=== PATIENT | female | born 1995 | race Caucasian/White ===

== ENCOUNTER 2022-04-01 16:06 | Emergency (ER) | payer SELFPAY ==
[~2022-04-01] VITALS: Ht 165.1 cm; Wt 86.2 kg
[2022-04-01 16:07] VITALS: BP 117/41
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
--- NOTE | 2022-04-01 16:28 | NUR ---
DR JENKINS AT BEDSIDE EVALUATING PT
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
--- NOTE | 2022-04-01 16:49 | NUR ---
SPOKE WITH FROM SANJANA FROM [facility]. PROVIDED ALL INFORMATION PROVIDED BY PATIENT. INFORMED HIM THAT THE AMBULANCE PICKED HER UP [address] PROVIDED HIM [facility] CALL BACK NUMBER OF ER. STATED THAT OFFICERS WILL BE DISPATCHED
--- NOTE | 2022-04-01 17:40 | NUR ---
[place] [employer]- OFFICER CRISTOBAL AT BEDSIDE SPEAKING WITH PATIENT AT THIS TIME.
--- NOTE | 2022-04-01 17:44 | NUR ---
PT REFUSED TO SPEAK WITH PD OFFICERS, PD STATED THERE WAS NOTHING THEY CAN DO.
[2022-04-01] MEDS ORDERED: OLANZapine 5 MG ODT SL ONE (17:50)
[2022-04-01 18:16] VITALS: BP 127/87
--- NOTE | 2022-04-01 18:17 | NUR ---
lab at bedside
--- NOTE | 2022-04-01 18:25 | NUR ---
unable to give urine sample at this time.
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
[2022-04-01] MEDS ORDERED: KETOROLAC 15 MG/ML VIAL IVP ONE (19:20)
--- NOTE | 2022-04-01 19:20 | NUR ---
Pt report given to GAMA Cano. Transfer of care at this time.
[2022-04-01 20:15] LABS: APPEARANCE,URINE SL CLOUDY (CLEAR); BILIRUBIN,URINE NEGATIVE (NEGATIVE); BLOOD, URINE 3+ (NEGATIVE); COLOR,URINE DARK YELLOW (YELLOW); LEUKOCYTE ESTERASE ,URINE TRACE (NEGATIVE); NITRITE, URINE NEGATIVE (NEGATIVE); UGLUCOSE NEGATIVE (NEGATIVE)
[2022-04-01 20:36] LABS: RBC,URINE TOO NUMEROUS TO COUN /HPF (0-5); YEAST,URINE None Seen /HPF (None Seen)
--- NOTE | 2022-04-01 21:03 | NUR ---
PT STATES "CAN I BE MOVED TO ANOTHER ROOM. I CANT JUST STAY HERE. EXPLAINED TO PT THAT THIS ROOM WAS THE ONLY AVAILABLE ROOM AT THIS TIME. PT RETURNED TO ROOM.
[2022-04-01] MEDS ORDERED: IBUP-2213 PO (21:10)
[2022-04-01] MEDS ORDERED: CEPH-588 PO (21:10)
--- NOTE | 2022-04-01 21:10 | NUR ---
Pt informed that Dr. Burgess will assess patient. Patient stated "Ok, I will wait for the doctor." Dr. Burgess verbally informed that patient is waiting for assessment. Dr. Burgess verbalized understanding, no further questions or orders.
--- NOTE | 2022-04-01 21:14 | NUR ---
PT SEEN LEAVING FACILITY THROUGH AMBULANCE ENTRANCE, PT STATED "I'M JUST GONNA LEAVE." DR. MITCHELL MADE AWARE.
--- NOTE | 2022-04-01 21:14 | NUR ---
DR. MITCHELL CLEARED PT. PT LEFT FACILITY WITHOUT INSTRUCTIONS
--- NOTE | 2022-04-01 21:43 | NUR ---
NOTIFIED BY PRIMARY RN THAT PT HAD IV LINE IN PLACE. PT UNABLE TO BE FOUND IN LOBBY OR OUTSIDE. CALLED PHONE NUMBER LISTED ON FILE WITH NO ANSWER. CALLED [place] [employer] TO SEE IF PT CAN BE LOCATED AND PER DISPATCH IF THERE IS NO ADDRESS LISTED FOR PATIENT, PD WOULD NOT BE ABLE TO SEARCH FOR PT.
--- NOTE | 2022-04-01 22:07 | NUR ---
RETURN CALL FROM CELINE, PT MOTHER WHO STATED THAT PT LIVES AT A [facility] IN [place] AND PROVIDED ADDRESS OF [address] [place] [id number] AND PHONE NUMBER [phone]. WILL HAVE PRIMARY RN RECONTACT PD.
--- NOTE | 2022-04-01 22:23 | NUR ---
CONTACTED [facility] [place] MOLD STAMPER AND REPAIRER CECIL FABIAN, AT PHONE NUMBER PHONE NUMBER [phone]. MOLD STAMPER AND REPAIRER CECIL FABIAN STATED, "WHEN SHE GETS HOME, I WILL TAKE OUT THE IV. I KNOW HOW TO DO IT." INFORMED MOLD STAMPER AND REPAIRER CECIL FABIAN THAT IV REMOVAL REQUIRES ASEPTIC TECHNIQUE. MOLD STAMPER AND REPAIRER CECIL FABIAN STATED HE "KNOWS HOW TO DO IT." INFORMED MANAGER CECIL FABIAN THAT [place] [employer] WILL BE CONTACTED TO UPDATE THAT PATIENT ELOPED AND INFORMED ABOUT SITUATION. MANAGER CECIL FABIAN VERBALIZED UNDERSTANDING, NO FURTHER QUESTIONS.
--- NOTE | 2022-04-01 22:26 | NUR ---
[place] [employer] CALLED AT PHONE NUMBER [phone] TO INFORM THAT PATIENT ELOPED FROM HOSPITAL AND TO REMOVE PATIENT'S IV IF PATIENT STILL HAS IV IN. CORPORATE STAFF ACCOUNTANT 01 RECORDED REQUEST FOR SERVICE NUMBER [id number], STATING SHE "WILL PUT THE CALL OUT NOW."
--- NOTE | 2022-04-01 22:32 | NUR ---
[place] [employer] CALLED AT PHONE NUMBER [phone] TO INFORM POLICE THAT PATIENT ELOPED FROM HOSPITAL AND CURRENT SITUATION. BAND SAW OPERATOR CAKE CUTTING KESHA RECORDED REQUEST FOR SERVICE NUMBER [id number], STATING SHE "WILL PUT THE CALL OUT NOW FOR AN AREA CHECK, AND WILL SEND PATIENT BACK TO HAVE IV REMOVED IF SHE STILL HAS IV IN."
== END 2022-04-01 21:14 | disposition left against medical advice (07) ==
LOC: MED 16:06
DX: R44.1 Visual hallucinations (principal)
CPT/HCPCS: 81001; 81025; 86703; 87086; 87491; 96374; 99283; J1885